=== PATIENT | female | born 1950 | race Caucasian/White ===

== ENCOUNTER → 2017-04-15 | Outpatient (CLI) | payer MEDICARE, OTHER ==
[~2017-04-15] MED LIST: ACET-1600 PO; CHOL2000 PO; DIPH25CA61 PO; GABA300C10 PO; GLUC500T11 PO; IBUP-1223 PO; MULT-750 PO; MULTIVITAMIN PO; OXYC5CAP2 PO; [UNRECOGNIZED DRUG - CODE] PO; [UNRECOGNIZED DRUG - CODE] PO; [UNRECOGNIZED DRUG - OTHER] PO
[2017-04-15 13:24] LABS: HEMATOCRIT 41.7 % (34.6-47.8); HEMOGLOBIN 13.9 g/dL (11.7-16.4); WHITE BLOOD COUNT 6.4 x10^3/uL (3.4-10)
[2017-04-15 13:28] LABS: ASPARTATE AMINO TRANSFERASE 16 U/L (15-37); BLOOD UREA NITROGEN 13 mg/dL (7-18)
== END | disposition home or self-care (01) ==
LOC: STAR 12:09
PROVIDERS: ATTEND Orthopaedic Surgery
DX: Z01.818 Encounter for other preprocedural examination (principal)
CPT/HCPCS: 36415; 80053; 81003; 85025; 87081; 93005

== ENCOUNTER 2017-04-23 06:22 | Inpatient (IN) | payer MEDICARE, OTHER ==
[~2017-04-23] VITALS: Ht 177.8 cm; Wt 82.1 kg
[~2017-04-23 06:22] MED LIST changes: -GABA300C10 PO
[2017-04-23] MEDS ORDERED: LACTATED RINGERS 1,000 ML IV SCH (06:54)
[2017-04-23] MEDS ORDERED: GABA300C10 PO (06:55)
[2017-04-23] MEDS ORDERED: LIDOCAINE 1%, 2ML SQ PRN (07:00)
[2017-04-23] MEDS ORDERED: FENTANYL PF 100 MCG/2ML ONE (07:59)
[2017-04-23] MEDS ORDERED: ONDANSETRON 2MG/ML, 2ML ONE (08:00)
[2017-04-23] MEDS ORDERED: PROPOFOL 50 ML ONE (08:00)
[2017-04-23] MEDS ORDERED: CEFAZOLIN 1,000 MG ONE (08:00)
[2017-04-23] MEDS ORDERED: PROPOFOL 10 MG/ML, 20ML ONE ×2 (08:00→10:31)
[2017-04-23] MEDS ORDERED: DEXAMETHASONE 4 MG/ML, 1ML ONE (08:00)
[2017-04-23] MEDS ORDERED: MIDAZOLAM 1 MG/ML, 2ML ONE (08:00)
[2017-04-23] MEDS ORDERED: KETOROLAC 60 MG/2 ML ONE (08:58)
[2017-04-23] MEDS ORDERED: ROPivacaine/PF 0.2%, 10 ML ONE (08:58)
[2017-04-23] MEDS ORDERED: TRANEXAMIC ACID 100 MG/ML, 10ML ONE (08:58)
[2017-04-23] MEDS ORDERED: EPINEPHRINE 1 MG/ML, 1ML ONE (08:58)
[2017-04-23] MEDS ORDERED: PHENYLEPHRINE 10 MG/ML ONE (09:17)
[2017-04-23] MEDS ORDERED: EPHEDRINE 50 MG/ML, 1ML ONE (09:44)
[2017-04-23] MEDS ORDERED: DIAZEPAM 5 MG/ML, 2ML IVPush PRN (10:00)
[2017-04-23] MEDS ORDERED: hydrALAzine 20 MG/ML, 1ML IV PRN (10:00)
[2017-04-23] MEDS ORDERED: LABETALOL 5MG/ML, 20ML IV PRN (10:00)
[2017-04-23] MEDS ORDERED: PROMETHAZINE 25 MG/ML, 1ML IV PRN (10:00)
[2017-04-23] MEDS ORDERED: ACETAMINOPHEN 325 MG TABLET PO PRN (10:00)
[2017-04-23] MEDS ORDERED: MIDAZOLAM 1 MG/ML, 2ML IV PRN (10:00)
[2017-04-23] MEDS ORDERED: KETOROLAC 30 MG/1 ML IV PRN (10:00)
[2017-04-23] MEDS ORDERED: OXYcodone 5 MG/5 ML ORAL.SOL UDC PO PRN (10:00)
[2017-04-23] MEDS ORDERED: ONDANSETRON 2MG/ML, 2ML IVPush PRN (10:00)
[2017-04-23] MEDS ORDERED: MEPERIDINE/PF 25MG/0.5ML IVPush PRN (10:00)
[2017-04-23] MEDS ORDERED: ALBUTEROL/IPRATROPIUM 2.5MG/0.5MG, 3 ML NPPB PRN (10:00)
[2017-04-23] MEDS ORDERED: HYDROmorphone 1 MG/ML, 1ML IV PRN ×2 (10:00→11:30)
[2017-04-23] MEDS ORDERED: FENTANYL PF 100 MCG/2ML IV PRN (10:00)
[2017-04-23] MEDS ORDERED: LIDOCAINE-MPF 2% ,5ML ONE (10:03)
[2017-04-23] MEDS ORDERED: TRANEXAMIC ACID 1,000 MG in SODIUM CHLORIDE 0.9% 100 ML IVPB ONE (11:30)
[2017-04-23] MEDS ORDERED: ZOLPIDEM 5MG TABLET PO PRN (11:30)
[2017-04-23] MEDS ORDERED: PROMETHAZINE 12.5 MG SUPP PR PRN (11:30)
[2017-04-23] MEDS ORDERED: ONDANSETRON 4 MG TABLET PO PRN (11:30)
[2017-04-23] MEDS ORDERED: PROMETHAZINE 25 MG/ML, 1ML IM PRN (11:30)
[2017-04-23] MEDS ORDERED: DIPHENHYDRAMINE 25 MG CAPSULE PO PRN (11:30)
[2017-04-23] MEDS ORDERED: MAGNESIUM HYDROXIDE 8%, 30ML UDC PO PRN (11:30)
[2017-04-23] MEDS ORDERED: ONDANSETRON 2MG/ML, 2ML IV PRN (11:30)
[2017-04-23] MEDS ORDERED: ALUMINUM/MAG/SIMETHICONE 30 ML UDC PO PRN (11:30)
[2017-04-23] MEDS: OXYcodone IR 5MG TABLET PO SCH ×4 (11:30→23:30)
[2017-04-23] MEDS ORDERED: DIAZEPAM 5 MG TABLET PO PRN (11:30)
[2017-04-23] MEDS ORDERED: SENNA/DOCUSATE TABLET PO PRN (11:30)
[2017-04-23] MEDS ORDERED: BISACODYL 10 MG SUPP PR PRN (11:30)
[2017-04-23] MEDS ORDERED: OXYcodone IR 5MG TABLET PO PRN (11:30)
[2017-04-23] MEDS ORDERED: ACETAMINOPHEN 650 MG/20.3 ML UDC ONE (11:38)
[2017-04-23] MEDS ORDERED: OXYcodone 5 MG/5 ML ORAL.SOL UDC ONE (11:39)
[2017-04-23 12:30] VITALS: BP 109/54
[2017-04-23] MEDS: D5%-0.45% NACL 1,000 ML IV SCH ×2 (13:07→20:00)
[2017-04-23] MEDS: TAMSULOSIN 0.4 MG CAP.ER.24H PO SCH (13:53)
[2017-04-23] MEDS: CEFAZOLIN PMX 2GM/50ML 50 ML IVPB SCH (16:49)
[2017-04-23] MEDS: ASPIRIN 81 MG TABLET EC PO SCH (18:00)
[2017-04-23 19:18] VITALS: BP 119/63
[2017-04-23] MEDS: ACETAMINOPHEN 650 MG/20.3 ML UDC PO SCH (20:00)
[2017-04-23] MEDS ORDERED: ACETAMINOPHEN 500 MG TABLET ONE (20:02)
[2017-04-23] MEDS: DOCUSATE 100 MG CAPSULE PO SCH (20:13)
[2017-04-23 23:52] VITALS: BP_SYST 93; BP_SYST 96; BP_DIAS 52; BP_DIAS 54
[2017-04-24] MEDS: CEFAZOLIN PMX 2GM/50ML 50 ML IVPB SCH (01:53)
[2017-04-24] MEDS: D5%-0.45% NACL 1,000 ML IV SCH ×2 (02:40→07:46)
[2017-04-24] MEDS: OXYcodone IR 5MG TABLET PO SCH ×2 (03:30→07:45)
[2017-04-24 03:47] VITALS: BP 104/57
[2017-04-24] MEDS: ACETAMINOPHEN 650 MG/20.3 ML UDC PO SCH (04:00)
[2017-04-24 05:08] LABS: HEMATOCRIT 32.6 % (34.6-47.8); HEMOGLOBIN 11.2 g/dL (11.7-16.4)
[2017-04-24] MEDS ORDERED: DEXAMETHASONE 4 MG/ML, 1ML IVPush SCH (06:00)
[2017-04-24] MEDS: ASPIRIN 81 MG TABLET EC PO SCH (06:18)
[2017-04-24 07:36] VITALS: BP 102/63
[2017-04-24] MEDS: DOCUSATE 100 MG CAPSULE PO SCH (07:45)
[2017-04-24] MEDS: TAMSULOSIN 0.4 MG CAP.ER.24H PO SCH (07:46)
[2017-04-24] MEDS ORDERED: MULTIVITAMINS/MINERALS TABLET PO SCH (09:00)
[2017-04-24 09:48] VITALS: BP 114/68
[2017-04-24] MEDS ORDERED: KETOROLAC 30 MG/1 ML IV SCH (11:30)
== END 2017-04-24 11:10 | disposition home or self-care (01) | DRG 470 ==
LOC: ORIP 06:22 → 4NOR 13:04 → DCLOUNGE 04-24 10:55
PROVIDERS: ADMIT Orthopaedic Surgery; ATTEND Orthopaedic Surgery
PROC: 0SR906Z Replacement of Right Hip Joint with Oxidized Zirconium on Polyethylene Synthetic Substitute, Open Approach (ICD-10-PCS; principal; 2017-04-23 09:15)
DX: M16.11 Unilateral primary osteoarthritis, right hip (principal)
CPT/HCPCS: 36415; 72170; 85014; 85018; 86850; 86900; C1713; J0171; J0690; J1100; J1885; J2250; J2405; J2704; J2795; J3010; J3490; C1776; J2370

== ENCOUNTER → 2018-03-27 | Outpatient (CLI) | payer MEDICARE ==
[~2018-03-27] MED LIST changes: +GABA300C10 PO
== END | disposition home or self-care (01) ==
LOC: CFH 09:01
PROVIDERS: ATTEND Family Medicine
DX: Z12.31 Encounter for screening mammogram for malignant neoplasm of breast (principal)
CPT/HCPCS: 77063; 77067

== ENCOUNTER → 2019-11-11 | Outpatient (CLI) | payer MEDICARE ==
[2019-11-11 12:30] LABS: BASOPHILS # (AUTO) 0.01 x10^3/uL (0-0.1); BASOPHILS % (AUTO) 0 % (0-1); EOSINOPHILS % (AUTO) 0 % (1-7); LYMPHOCYTES # (AUTO) 1.49 x10^3/uL (1-3.4); LYMPHOCYTES % (AUTO) 20 % (22-44); MD NO; MEAN CORPUSCULAR HEMOGLOBIN 30.9 pg (27.0-34.8); MEAN CORPUSCULAR HGB CONC 33.2 g/dL (32.4-35.8); MEAN CORPUSCULAR VOLUME 93.2 fL (80-100); MEAN PLATELET VOLUME 9.5 fL (7.4-10.4); MONOCYTES # (AUTO) 0.45 x10^3/uL (0.2-0.8); MONOCYTES % (AUTO) 6 % (2-9); NEUTROPHILS # (AUTO) 5.68 x10^3/uL (1.8-6.8); NEUTROPHILS % (AUTO) 74 % (42-75); PLATELET COUNT 208 x10^3/uL (130-400); RED BLOOD COUNT 4.67 x10^6/uL (3.82-5.3); RED CELL DISTRIBUTION WIDTH 13.6 % (9.6-15.2)
[2019-11-11 13:04] LABS: CHLORIDE 108 mmol/L (98-107)
[2019-11-11 13:20] LABS: ALANINE AMINOTRANSFERASE 23 U/L (12-78); ALBUMIN 4.1 g/dL (3.4-5.0); ALKALINE PHOSPHATASE 125 U/L (45-117); ANION GAP 8 mmol/L (5-15); BILIRUBIN,TOTAL 0.6 mg/dL (0.2-1.0); CALCIUM 9.8 mg/dL (8.5-10.1); CHOL/HDL RATIO 2.2; CHOLESTEROL, TOTAL 203 mg/dL (140-239); CREATININE 0.85 mg/dL (0.55-1.02); HDL CHOL % 46 % (28-40); HDL CHOLESTEROL (DIRECT) 94 mg/dL (40-60); LDL CHOLESTEROL,CALCULATED 99 mg/dL (54-169); LDL/HDL RATIO 1.1 (0.5-3.0); TRIGLYCERIDES 48 mg/dL (50-200); VLDL CHOLESTEROL 10 mg/dL (0-25)
== END | disposition home or self-care (01) ==
LOC: CFH 08:29
PROVIDERS: ATTEND Family Medicine
DX: E78.5 Hyperlipidemia, unspecified (principal); R53.83 Other fatigue
CPT/HCPCS: 36415; 80053; 80061; 84443; 85025